=== PATIENT | male | born 2000 | race African-American/Black ===

== ENCOUNTER 2021-07-01 05:05 | Emergency (ER) | payer BC ==
[2021-07-01] MEDS ORDERED: Mag-Al 1200 mg/1200 mg/30 ML UDCUP ONE (05:36)
[2021-07-01] MEDS ORDERED: Lidocaine Viscous Sol 2% 15 ml UD Cup ONE (05:36)
[2021-07-01 06:01] LABS: Eosinophils 2 % (0-10); Lymphocytes 53 % (21-51); MDiff Complete? YES; Mean Corpuscular HGB CONC 33.6 g/dL (32.0-36.0); Mean Corpuscular Hemoglobin 28.8 pg (27.0-31.0); Mean Corpuscular Volume 85.8 fL (78.0-98.0); Mean Platelet Volume 7.4 fL (7.4-10.4); Monocytes 4 % (0-10); Neutrophil 36 % (42-75); Platelet Count 270 thou/uL (130-400); Platelet Morphology Comment Appears Adequate; RBC Distribution Width 11.7 % (11.5-14.5); Reactive Lymphocytes 5 % (0-10); Red Blood Cell (RBC) Count 5.56 mill/uL (4.70-6.10); White Blood Cell (WBC) Count 6.8 thou/uL (4.8-10.8)
[2021-07-01 06:08] LABS: ALT (SGPT) 22 U/L (8-55); AST (SGOT) 18 U/L (5-34); Albumin 4.4 g/dL (3.5-5.0); Alkaline Phosphatase 61 U/L (40-110); Anion Gap 14 mmol/L (10-20); BUN (Urea Nitrogen) 8 mg/dL (8.9-20.6); Calc. Creatinine Clearance 0 mL/min (70-130); Calcium 10.1 mg/dL (7.8-10.44); Carbon Dioxide 26 mmol/L (22-29); Chloride 102 mmol/L (98-107); Globulin 3.3 g/dL (2.4-3.5); Glucose 81 mg/dL (70-105); Lipase 41 U/L (8-78); Potassium 4.1 mmol/L (3.5-5.1); Protein, Total 7.7 g/dL (6.0-8.3); Sodium 138 mmol/L (136-145)
== END 2021-07-01 07:53 | disposition home or self-care (01) ==
LOC: ERS 05:05
DX: R10.13 Epigastric pain (principal)
CPT/HCPCS: 36415; 76705; 80053; 83690; 85025

== ENCOUNTER 2021-07-17 02:00 | Emergency (ER) | payer BC | END 2021-07-17 05:24 | disposition home or self-care (01) | LOC: ERS 02:00 | DX: K27.9 Peptic ulcer, site unspecified, unspecified as acute or chronic, without hemorrhage or perforation (principal) | CPT/HCPCS: 99283 ==

== ENCOUNTER 2021-07-24 09:51 | Outpatient (CLI) | payer BC ==
[2021-07-24] MEDS ORDERED: Magnevist 469MG/ML 20 ML VIAL ONE (12:29)
== END 2021-07-24 09:52 | disposition home or self-care (01) ==
LOC: MRI 09:51
PROVIDERS: ATTEND Physician Assistant Medical
DX: R10.13 Epigastric pain (principal); R93.2 Abnormal findings on diagnostic imaging of liver and biliary tract
CPT/HCPCS: 74183; A9579

== ENCOUNTER 2022-01-27 21:55 | Emergency (ER) | payer BC | END 2022-01-27 22:53 | disposition home or self-care (01) | LOC: ERS 21:55 | DX: I10 Essential (primary) hypertension (principal) | CPT/HCPCS: 99283 ==

== ENCOUNTER 2022-07-25 02:24 | Emergency (ER) | payer BC ==
[2022-07-25] MEDS ORDERED: Mag-Al 1200 mg/1200 mg/30 ML UDCUP ONE (03:00)
[2022-07-25] MEDS ORDERED: Lidocaine Viscous Sol 2% 15 ml UD Cup ONE (03:00)
== END 2022-07-25 03:32 | disposition home or self-care (01) ==
LOC: ERS 02:24
DX: R05.9 Cough, unspecified (principal); R10.9 Unspecified abdominal pain
CPT/HCPCS: 71045

== ENCOUNTER 2024-09-02 13:43 | Emergency (ER) | payer BC, SELFPAY ==
[2024-09-02] MEDS ORDERED: Bupivacaine 0.25% 10 ML VIAL ONE (14:17)
[2024-09-02] MEDS ORDERED: Ibuprofen 800 MG TAB ONE (14:18)
== END 2024-09-02 18:22 | disposition home or self-care (01) ==
LOC: ERS 13:43
DX: L03.012 Cellulitis of left finger (principal); L02.512 Cutaneous abscess of left hand
CPT/HCPCS: 99282; J0665